=== PATIENT | female | born 1985 | race Caucasian/White ===

== ENCOUNTER 2017-05-08 16:42 | Emergency (ER) | payer MEDICAID ==
[2014-09-10 09:19] VITALS: BMI 37.2
[~2017-05-08 16:42] MED LIST: HYDROCODON-ACE1 EAC7 PO
[2017-05-08 17:26] LABS: APPEARANCE CLEAR (CLEAR); COLOR YELLOW (YELLOW); GLUCOSE NEGATIVE (NEGATIVE); KETONE NEGATIVE (NEGATIVE); NITRITE NEGATIVE (NEGATIVE); PROTEIN TRACE mg/dL (NEGATIVE); SPECIFIC GRAVITY 1.025 (1.005-1.020); UROBILINOGEN NORMAL (NORMAL)
[2017-05-08 17:27] LABS: BILIRUBIN NEGATIVE (NEGATIVE)
[2017-05-08 18:01] LABS: BASOPHILS 0.3 % (0-2); EOSINOPHILS 3.5 % (0-7); HEMATOCRIT 39.5 % (36.0-48.0); HEMOGLOBIN 13.2 g/dL (12-16); IMMATURE GRANULOCYTES 0.3 % (0-5); LYMPHOCYTES 36.1 % (15-50); MCH 30.1 pg (26.0-34.0); MCHC 33.4 g/dL (31.0-37.0); MCV 90.2 fL (80.0-100.0); MEAN PLATELET VOLUME 10.3 fL (7.4-10.4); MONOCYTES 5.4 % (2-11); NEUTROPHILS 54.4 % (40-80); PLATELET COUNT 211 10x3/uL (130-400); RBC 4.38 10x6/uL (4.00-5.40); RDW 12.3 % (11.5-14.5)
[2017-05-08 18:28] LABS: ALBUMIN 3.4 g/dL (3.4-5.0); ALKALINE PHOSPHATASE 49 U/L (46-116); ALT (SGPT) 18 U/L (10-68); AMYLASE - SERUM 27 U/L (25-115); BILIRUBIN - TOTAL 0.13 mg/dL (0.2-1.3); CALC OSMOLALITY 287 mosm/kg (275-300); CALCIUM 8.6 mg/dL (8.5-10.1); CARBON DIOXIDE 26.3 mmol/L (21.0-32.0); CHLORIDE - SERUM 108 mmol/L (98-107); CREATININE - SERUM 0.6 mg/dL (0.6-1.3); LIPASE 90 U/L (73-393); POTASSIUM - SERUM 3.7 mmol/L (3.5-5.1); PROTEIN - SERUM 6.4 g/dL (6.4-8.2); SODIUM 144 mmol/L (136-145); UREA NITROGEN 10 mg/dL (7-18); eGFR NON AFRICAN AMERICAN > 90 mL/min (90-120)
[2017-05-08 18:45] LABS: GLUCOSE 138 mg/dL (74-106)
[2017-05-08 19:18] LABS: HCG SERUM NEGATIVE (NEGATIVE)
== END 2017-05-08 19:08 | disposition home or self-care (01) ==
LOC: D.ER 16:42
PROVIDERS: Emergency Medicine; Nurse Practitioner Family
DX: R10.9 Unspecified abdominal pain (principal); K59.00 Constipation, unspecified; R11.2 Nausea with vomiting, unspecified

== ENCOUNTER 2020-11-29 06:53 | Emergency (ER) | payer MEDICAID ==
[~2020-11-29] VITALS: Ht 167.6 cm; Wt 69.5 kg
[2020-11-29 07:05] VITALS: Ht 167.6 cm; Wt 69.5 kg
[2020-11-29] MEDS ORDERED: ZOFRAN ODT4 MG/UDTAB PO (07:45)
[2020-11-29] MEDS ORDERED: CLONIDINE HCL0.1 MG PO (07:45)
[2020-11-29 08:00] VITALS: BP 125/62
== END 2020-11-29 08:25 | disposition home or self-care (01) ==
LOC: D.ER 06:53
DX: F11.23 Opioid dependence with withdrawal (principal); M79.7 Fibromyalgia